=== PATIENT | female | born 1985 | race Caucasian/White ===

== ENCOUNTER 2016-09-16 02:20 | Emergency (ER) | payer OTHER ==
[~2016-09-16] VITALS: Ht 170.2 cm; Wt 154.4 kg
[~2016-09-16 02:20] MED LIST: ABILIFY20 MG PO; ALPRAZOLAM1 MG PO; CIPROFLOXACIN500 M1 PO; EFFEXOR75 MG PO; KLONOPIN0.5 M1 PO; LAMICTAL150 MG; LAMICTAL25 MG PO; LITHIUM CARBON300 MG PO; PHENERGAN12.5 M1 PO; PRENATAL1 EACH PO; PROZAC40 MG PO; TOPAMAX15 MG PO; TOPAMAX50 MG; TOPIRAMATE100 MG PO; VENLAFAXINE HC150 M1 PO
[2016-09-16] MEDS ORDERED: PERCOCET 5/31 TABLET PO (02:46)
[2016-09-16] MEDS ORDERED: ANECREAM30 GM TP (02:46)
[2016-09-16 03:13] VITALS: BP 140/79
[2016-09-28] MEDS ORDERED: LATUDA60 MG PO (15:21)
[2016-09-28] MEDS ORDERED: XANAX1 MG PO (15:21)
[2016-09-28] MEDS ORDERED: TYLENOL EXTRA500 MG PO (15:22)
[2016-09-28] MEDS ORDERED: INDERAL40 MG PO (15:22)
[2016-09-28] MEDS ORDERED: PROAIR HFA8.5 GM IH (15:24)
== END 2016-09-16 03:14 | disposition home or self-care (01) ==
LOC: EME 02:20
DX: K64.9 Unspecified hemorrhoids (principal); J45.909 Unspecified asthma, uncomplicated; K21.9 Gastro-esophageal reflux disease without esophagitis; F31.9 Bipolar disorder, unspecified; F17.200 Nicotine dependence, unspecified, uncomplicated
CPT/HCPCS: 99281; 99283

== ENCOUNTER → 2016-10-03 | Outpatient (CLI) | payer OTHER ==
[~2016-10-03] VITALS: Ht 170.2 cm; Wt 154.5 kg
[~2016-10-03] MED LIST changes: +ANECREAM30 GM TP; +INDERAL40 MG PO; +LATUDA60 MG PO; +PERCOCET 5/31 TABLET PO; +PROAIR HFA8.5 GM IH; +TYLENOL EXTRA500 MG PO; +XANAX1 MG PO
== END | disposition home or self-care (01) ==
LOC: AMB 12:47
DX: D12.3 Benign neoplasm of transverse colon (principal); K25.9 Gastric ulcer, unspecified as acute or chronic, without hemorrhage or perforation; K64.8 Other hemorrhoids; R19.7 Diarrhea, unspecified; K62.5 Hemorrhage of anus and rectum; K21.9 Gastro-esophageal reflux disease without esophagitis; R11.2 Nausea with vomiting, unspecified; J45.909 Unspecified asthma, uncomplicated; F41.9 Anxiety disorder, unspecified; F17.210 Nicotine dependence, cigarettes, uncomplicated; E66.9 Obesity, unspecified; Z68.43 Body mass index [BMI] 50.0-59.9, adult
CPT/HCPCS: 88305; 88313; 88342 TC; 93005; J2250; J3010